=== PATIENT | female | born 1935 | race Caucasian/White ===

== ENCOUNTER 2021-04-18 13:29 | Outpatient (CLI) | payer OTHER ==
[~2021-04-18 13:29] MED LIST: CARDURA1 MG PO; CODE1TAB37 PO; DIOVAN HCT 320/1 TA2 PO; DIOVAN320 MG PO; LUBRICANT EYE15 M1 OP; Mylicon 125MG PO; NORVASC5 MG PO; PREVENT SOFTGEL1 CAP PO; SM COD LIVER O1 EACH PO; TEGRETOL200 MG PO; TENORMIN50 M1 PO; TYLENOL 325MG325 MG RC
== END 2021-04-18 13:36 | disposition home or self-care (01) ==
LOC: TOM 13:29
DX: J32.4 Chronic pansinusitis (principal)

== ENCOUNTER 2022-07-30 09:36 | Emergency (ER) | payer OTHER ==
[~2022-07-30] VITALS: Ht 154.9 cm; Wt 77.1 kg
[2022-07-30] MEDS ORDERED: CARVEDILOL6.25 MG PO (10:00)
[2022-07-30] MEDS ORDERED: COZAAR100 MG PO (10:00)
[2022-07-30] MEDS ORDERED: NEURONTIN300 MG PO (10:01)
[2022-07-30] MEDS ORDERED: RESTORIL30 M1 PO (10:01)
[2022-07-30] MEDS ORDERED: SEROQUEL400 MG PO (10:01)
[2022-07-30] MEDS ORDERED: TIROSINT50 MCG PO (10:02)
[2022-07-30] MEDS ORDERED: ZOLOFT100 MG PO (10:03)
[2022-07-30] MEDS ORDERED: NORVASC5 MG PO (10:03)
== END 2022-07-30 12:20 | disposition home or self-care (01) ==
LOC: ER 09:36
DX: S00.83XA Contusion of other part of head, initial encounter (principal); Z88.6 Allergy status to analgesic agent; S00.01XA Abrasion of scalp, initial encounter; W18.39XA Other fall on same level, initial encounter; Y93.89 Activity, other specified; Y92.018 Other place in single-family (private) house as the place of occurrence of the external cause